=== PATIENT | male | born 1995 | race Caucasian/White ===

== ENCOUNTER 2018-05-06 15:26 | Emergency (ER) | payer BC, OTHER ==
[~2018-05-06] VITALS: Ht 175.3 cm; Wt 66.5 kg
[2018-05-06] MEDS ORDERED: MOTRIN800 MG PO (17:59)
[2018-05-06] MEDS ORDERED: ULTRAM50 MG PO (17:59)
[2018-05-06 18:32] VITALS: BP 128/76
== END 2018-05-06 18:50 | disposition home or self-care (01) ==
LOC: EME 15:26
PROC: 2W3QX1Z Immobilization of Right Lower Leg using Splint (ICD-10-PCS; principal; 2018-05-06)
DX: S92.021A Displaced fracture of anterior process of right calcaneus, initial encounter for closed fracture (principal); S92.251A Displaced fracture of navicular [scaphoid] of right foot, initial encounter for closed fracture; S93.401A Sprain of unspecified ligament of right ankle, initial encounter; W13.8XXA Fall from, out of or through other building or structure, initial encounter; X50.1XXA Overexertion from prolonged static or awkward postures, initial encounter; Y99.0 Civilian activity done for income or pay; Z87.891 Personal history of nicotine dependence
CPT/HCPCS: 72070; 72100; 73610; 85049